=== PATIENT | male | born 1975 ===

== ENCOUNTER → 2023-06-13 | Outpatient (CLI) | payer BC ==
--- NOTE | 2023-06-20 10:04 | CT ---
EXAMINATION TYPE: CT chest wo con CT DLP: 631.7 mGycm, Automated exposure control for dose reduction was used. DATE OF EXAM: 06/13/2023 6:56 PM COMPARISON: None. . CLINICAL INDICATION:Male, 48 years old with history of Z80.1 FAMILY HISTORY OF MALIG NEOPLASM OF TRAC HEA,; PHH, family history of lung ca TECHNIQUE: Multiple axial images were obtained through the chest. Sagittal and coronal reformats were created for review. Contrast used: mL of (None if empty) Oral contrast used: (None if empty) FINDINGS: LUNGS/ PLEURA: Mild upper lobe predominant emphysematous changes bilaterally. In the mid right lower lobe anteriorly close to but not abutting the fissure there is a noncalcified 12 x 10 mm fairly carmela hly marginated nodule image 35 series 4. No other significant nodules are identified. Lungs are other wilkerson clear without evidence of consolidation, pleural effusion, or pneumothorax. AIRWAY: Central airways are patent. LOWER NECK: No significant findings. MEDIASTINUM: No enlarged mediastinal or hilar nodes evident.. HEART: Normal heart size. No significant coronary calcification.. No appreciable pericardial effusion . VASCULATURE: No significant atherosclerotic calcifications of the aorta and branches. Ascending aort a is 3 CM, descending is 2.5 CM. Aorta is considered normal in size. Pulmonary trunk measures 2.6 CM. Pulmonary trunk is normal in size. Vessels otherwise not further ass essed without contrast. SOFT TISSUES/LYMPH NODES: Unremarkable soft tissues. No axillary adenopathy. UPPER ABDOMEN: No significant findings. MUSCULOSKELETAL: No acute osseous abnormalities IMPRESSION: Single, solid pulmonary nodule in the right lower lobe that is 11 mm in size. In this high-risk patie nt, consider CT at 3 months, PET/CT, or tissue sampling recommended.
== END | disposition home or self-care (01) ==
LOC: RADCTMAIN 18:38
PROVIDERS: ATTEND Internal Medicine
DX: R91.1 Solitary pulmonary nodule (principal); Z80.1 Family history of malignant neoplasm of trachea, bronchus and lung
CPT/HCPCS: 71250

== ENCOUNTER → 2023-07-05 | Outpatient (CLI) | payer BC ==
--- NOTE | 2023-07-05 18:52 | PE ---
EXAMINATION TYPE: PET CT fusion skull to thigh DATE OF EXAM: 07/05/2023 CLINICAL INDICATION:Male, 48 years old with history of R91.1 Lung nodule; TECHNIQUE: Following the intravenous administration of 12.36 mCi of F-18 FDG, whole body images are performed from the skull base to the midthigh. Images are reviewed on the computer in the coronal, axial, and sagittal planes. Reconstructed rotating images are created on independent workstation and reviewed on the computer. A non-contrast CT is performed in conjunction with the PET scan. Glucose level 113 mg/dL CT DLP: 1018 mGycm, Automated exposure control for dose reduction was used. COMPARISON: CT None, PET/CT None, FINDINGS: Mediastinal SUV mean is 2.1. Hepatic parenchyma SUV mean is 3.0. SKULL BASE AND NECK: No suspicious radiotracer activity. CHEST, MEDIASTINUM, AND HILAR REGION: Right lower lobes appear segment 11 mm pulmonary nodule Max SUV 1.5. ABDOMEN AND PELVIS: No suspicious radiotracer activity. MUSCULOSKELETAL STRUCTURES: No suspicious radiotracer activity. OTHER CT: Moderate atherosclerosis of the arterial vasculature. Few scattered colonic diverticula. Fa tty changes to the inguinal canals. IMPRESSION: Right lower lobe superior segment pulmonary nodule with FDG activity below back on levels. Findings f avor granulomatous pulmonary nodule. Consider surveillance imaging in 6 months to ensure stability.
== END | disposition home or self-care (01) ==
LOC: RADPETMAIN 06:28
PROVIDERS: ATTEND Internal Medicine
DX: R91.1 Solitary pulmonary nodule (principal)
CPT/HCPCS: 78815; A9552

== ENCOUNTER → 2023-10-29 | Outpatient (CLI) | payer BC ==
--- NOTE | 2023-11-21 11:03 | CT ---
Site ID synapse default Patient ZeroHemanth sahni ID [id number] Age/Gender: 48Y, M Order # N/A Procedure CT Chest w Contrast Date 10/29/2023 1:15:00 PM EXAMINATION TYPE: CT chest w con CT DLP: 791 mGycm, Automated exposure control for dose reduction was used. DATE OF EXAM: 11/07/2023 3:58 PM COMPARISON: PET CT 07/05/2023, CT chest 06/13/2023 CLINICAL INDICATION: Male, 48 year old with history of solitary pulmonary nodule. TECHNIQUE: Multiple axial images were obtained through the chest following the administration of 100 cc of Isovue 300. . Coronal and sagittal reformats reviewed. FINDINGS: LUNGS/ PLEURA: No pleural effusion, pneumothorax, or focal consolidation. Relatively stable size of 1 0.9 x 9.9 mm right lower lobe pulmonary nodule (series 3, image 38). Previously measured 11.8 x 9.9 m m. No new or enlarging pulmonary nodules. AIRWAY: Patent and unremarkable. HEART: Size within normal limits. No pericardial effusion. MEDIASTINUM: No evidence of adenopathy. VASCULATURE: No aortic aneurysm. MUSCULOSKELETAL: No acute osseous abnormalities. No aggressive osseous lesion SOFT TISSUES/LYMPH NODES: Unremarkable. LOWER NECK: No significant findings. UPPER ABDOMEN: Diffuse low-attenuation to the liver parenchyma consistent with steatosis. IMPRESSION: Stable right lower lobe 10.9 mm pulmonary nodule. No new or enlarging pulmonary nodules. Continued moreno rveillance imaging is recommended.
== END | disposition home or self-care (01) ==
LOC: RADCTMAIN 10:45
PROVIDERS: ATTEND Internal Medicine Critical Care Medicine
DX: R91.1 Solitary pulmonary nodule (principal); E88.89 Other specified metabolic disorders
CPT/HCPCS: 71260; Q9967

== ENCOUNTER → 2024-05-23 | Outpatient (CLI) | payer BC ==
--- NOTE | 2024-05-23 16:32 | CT ---
EXAMINATION TYPE: CT chest w con DATE OF EXAM: 05/23/2024 COMPARISON: Chest CT October 29, 2023 and older studies. HISTORY: F/u for lung nodule on right lung. CT DLP: 576.2 mGycm. Automated Exposure Control for Dose Reduction was Utilized. TECHNIQUE: CT scan of the thorax is performed following with IV Contrast, patient injected with 100m l mL of Isovue 300. FINDINGS: LUNGS: Mild underlying emphysematous change bilaterally is redemonstrated. Grossly stable when accoun ting for technical differences 1.2 x 1.0 cm right midlung pulmonary nodule axial image 31. No new gre ater than 6 mm pulmonary nodules. HEART: Size within normal limits. No significant coronary artery calcifications. MEDIASTINUM: There are no greater than 1 cm hilar or mediastinal lymph nodes. No pericardial effusi on is seen. OTHER: Liver remains heterogeneously hypodense suggesting diffuse fatty infiltrative hepatocellular d isease. IMPRESSION: Stable 1.2 x 1.0 cm right midlung pulmonary nodule. No new suspicious nodules are present . [facility], , 05/23/2024 4:29 PM
== END | disposition home or self-care (01) ==
LOC: RADCTMAIN 14:54
PROVIDERS: ATTEND Internal Medicine Critical Care Medicine
DX: R91.1 Solitary pulmonary nodule (principal)
CPT/HCPCS: 71260; Q9967